=== PATIENT | female | born 1990 | race Caucasian/White ===

== ENCOUNTER → 2016-10-26 | Outpatient (CLI) | payer OTHER ==
--- NOTE | 2016-10-27 07:58 | MM ---
Reason for exam: screening (asymptomatic). Baseline mammogram. History: Patient is nulliparous. Family history of breast cancer in mother at age 40. Taking hormonal contraceptives beginning at age 24. Physical Findings: Nurse did not find any significant physical abnormalities on exam. MG 3D Screening Mammo W/Cad Bilateral CC and MLO view(s) were taken. The breast tissue is heterogeneously dense. This may lower the sensitivity of mammography. There are multiple nodules bilaterally. These results were verbally communicated with the patient and result sheet given to the patient on 10/26/16. ASSESSMENT: Incomplete: need additional imaging evaluation, BI-RAD 0 RECOMMENDATION: Ultrasound of both breasts.
--- NOTE | 2016-10-27 08:06 | USB ---
Reason for exam: additional evaluation requested from abnormal screening. History: Patient is nulliparous. Family history of breast cancer in mother at age 40. Taking hormonal contraceptives beginning at age 24. US Breast Limited BILAT Left breast ultrasound includes all four quadrants, the retroareolar region and axilla. Finding demonstrate a 0.8 x 0.4 x 0.9cm oval, cystic cluster at 12 o'clock, a 0.7 x 0.4 x 0.6cm oval, hypoechoic lesion at 7 o'clock and a 1.2 x 0.7 x 1.1cm oval, cystic lesion at 9 o'clock for which a biopsy is recommended. Right breast ultrasound demonstrates a 0.9 x 0.6 x 1.0cm oval, cystic lesion at 9 o'clock, a 1.0 x 0.4 x 0.5cm oval, cystic cluster at 10 o'clock, a 0.6 x 0.4 x 0.6cm oval, cystic lesion at 10 o'clock and a 1.2 x 0.7 x 1.3cm oval, solid lesion at 10 o'clock for which a biopsy is recommended. These results were verbally communicated with the patient and result sheet given to the patient on 10/26/16. ASSESSMENT: Suspicious, BI-RAD 4 RECOMMENDATION: Ultrasound core biopsy of both breasts. Called Dr. Baumann with mammographic findings and has scheduled an appointment for the patient for 11/19/16 at 10:[address] Robert. Biopsy scheduled for 11/07/16 at 8 o'clock. PRELIMINARY REPORT CALLED AND FAXED TO DR. ROBERT ON 10/27/16 AT 300/TP.
== END | disposition home or self-care (01) ==
LOC: RADMAMWWP 13:07
PROVIDERS: ATTEND Family Medicine
DX: Z12.31 Encounter for screening mammogram for malignant neoplasm of breast (principal); Z12.4 Encounter for screening for malignant neoplasm of cervix; Z80.3 Family history of malignant neoplasm of breast; R92.8 Other abnormal and inconclusive findings on diagnostic imaging of breast
CPT/HCPCS: 77063; 76642; G0202

== ENCOUNTER → 2016-11-05 | Day surgery (SDC) | payer OTHER ==
[~2016-11-05] MED LIST: ALPRAZolam 0.25 MG TAB ONE; BACITRACIN OINT 1 EACH PACKET TOPICAL ONE; LIDOCAINE 1% INJ 10MG/ML (20 ML MDV) ONE; SODIUM BICARB 4% 5 ML VIAL (0.48 MEQ/ML) ONE
--- NOTE | 2016-11-05 09:50 | MM ---
EXAMINATION TYPE: MG diagnostic mammo BI wo CAD DATE OF EXAM: 11/05/2016 9:30 AM COMPARISON: 10/26/2016 CLINICAL HISTORY: Status post ultrasound-guided core biopsy TECHNIQUE: Bilateral breasts are examined in the craniocaudal and mediolateral views. FINDINGS: There is dense parenchymal tissue covering two thirds of the breast. The pattern appears stable. There is interval biopsy with clips within the upper outer posterior right breast and within the mid lateral left breast. IMPRESSION: 1. Successful clip placement for bilateral ultrasound-guided core biopsies. Recommendations: 1. Recommendations are pending pathology results. Pathology Results: Benign A. BREAST, LEFT, CORE BIOPSY: FIBROCYSTIC CHANGES INCLUDING FIBROSIS AND CYSTS. B. BREAST, RIGHT, CORE BIOPSY: FIBROADENOMA AND FIBROCYSTIC CHANGES INCLUDING FIBROSIS, CYSTS AND APOCRINE METAPLASIA. Recommendation Follow up ultrasound of both breasts in 6 months. YEVGENIY
--- NOTE | 2016-11-05 13:44 | USB ---
EXAMINATION TYPE: US biopsy breast VAD RT DATE OF EXAM: 11/05/2016 9:53 AM CLINICAL HISTORY: R92.8 Abm Mammo. TECHNIQUE: Ultrasound guided core biopsy of bilateral breasts. COMPARISON: NONE FINDINGS: The procedure of ultrasound guided core biopsy was explained to the patient. Benefits, alternatives, and risks were discussed. An informed consent was then obtained. Timeout was performed. The patient was placed in supine positioning for imaging and for the procedure. The overlying skin was prepped and draped in usual sterile fashion. Lidocaine buffered with bicarbonate was used as anesthetic into the skin and subcutaneous tissue up to area of concern in the left breast. A parker was made with surgical scalpel. Under ultrasound guidance, a 12-gauge vacuum assisted biopsy gun device was used to obtain 6 core samples. Following this, a biopsy clip was left in lesion. The patient was placed in supine positioning for imaging and for the procedure. The overlying skin was prepped and draped in usual sterile fashion. Lidocaine buffered with bicarbonate was used as anesthetic into the skin and subcutaneous tissue up to area of concern in the right breast. A parker was made with surgical scalpel. The lesion targeted for biopsy is at the 10:00 position posterior near the chest wall. There is identified directly adjacent a small hypoechoic area. Given the proximity to the first lesion this area was biopsied at the same time and the combined samples sent to pathology. The clip be placed between these 2 areas. Under ultrasound guidance, a 12-gauge vacuum assisted biopsy gun device was used to obtain 10 core samples. These included 6 core samples of the larger area with thin the breast near the posterior wall and 4 core samples within the adjacent hypoechoic area directly adjacent to the first biopsied lesion in the right breast. Following this, a biopsy clip was left in right breast directly between the 2 adjacent areas. The patient tolerated the procedure well without any immediate complication. The patient was kept in the radiology department for short stay after the procedure and then discharged home in stable condition. Postprocedure mammogram was obtained. Bilateral biopsy clips are evident. IMPRESSION: 1. Successful, uncomplicated ultrasound guided core biopsy of area of concern in the bilateral breasts. This would include the left breast 9:00 position in the right breast 10:00 posterior position. Recommendations: 1. Recommendations are pending pathology results. Pathology Results: Benign A. BREAST, LEFT, CORE BIOPSY: FIBROCYSTIC CHANGES INCLUDING FIBROSIS AND CYSTS. B. BREAST, RIGHT, CORE BIOPSY: FIBROADENOMA AND FIBROCYSTIC CHANGES INCLUDING FIBROSIS, CYSTS AND APOCRINE METAPLASIA. Recommendation Follow up ultrasound of both breasts in 6 months. YEVGENIY
--- NOTE | 2016-11-05 13:45 | USB ---
EXAMINATION TYPE: US biopsy breast VAD LT DATE OF EXAM: 11/05/2016 9:53 AM CLINICAL HISTORY: R92.8 Abm Mammo. Abnormal ultrasound bilateral breasts. TECHNIQUE: Ultrasound guided core biopsy of bilateral breasts. COMPARISON: 10/26/2016 ultrasound FINDINGS: The procedure of ultrasound guided core biopsy was explained to the patient. Benefits, alternatives, and risks were discussed. An informed consent was then obtained. Timeout was performed. The patient was placed in supine positioning for imaging and for the procedure. The overlying skin was prepped and draped in usual sterile fashion. Lidocaine buffered with bicarbonate was used as anesthetic into the skin and subcutaneous tissue up to area of concern in the left breast. A parker was made with surgical scalpel. Under ultrasound guidance, a 12-gauge vacuum assisted biopsy gun device was used to obtain 6 core samples. Following this, a biopsy clip was left in lesion. The patient was placed in supine positioning for imaging and for the procedure. The overlying skin was prepped and draped in usual sterile fashion. Lidocaine buffered with bicarbonate was used as anesthetic into the skin and subcutaneous tissue up to area of concern in the right breast. A parker was made with surgical scalpel. The lesion targeted for biopsy is at the 10:00 position posterior near the chest wall. There is identified directly adjacent a small hypoechoic area. Given the proximity to the first lesion this area was biopsied at the same time and the combined samples sent to pathology. The clip be placed between these 2 areas. Under ultrasound guidance, a 12-gauge vacuum assisted biopsy gun device was used to obtain 10 core samples. These included 6 core samples of the larger area with thin the breast near the posterior wall and 4 core samples within the adjacent hypoechoic area directly adjacent to the first biopsied lesion in the right breast. Following this, a biopsy clip was left in right breast directly between the 2 adjacent areas. The patient tolerated the procedure well without any immediate complication. The patient was kept in the radiology department for short stay after the procedure and then discharged home in stable condition. Postprocedure mammogram was obtained. Bilateral biopsy clips are evident. IMPRESSION: 1. Successful, uncomplicated ultrasound guided core biopsy of area of concern in the bilateral breasts. This would include the left breast 9:00 position in the right breast 10:00 posterior position. Recommendations: 1. Recommendations are pending pathology results. Pathology Results: Benign A. BREAST, LEFT, CORE BIOPSY: FIBROCYSTIC CHANGES INCLUDING FIBROSIS AND CYSTS. B. BREAST, RIGHT, CORE BIOPSY: FIBROADENOMA AND FIBROCYSTIC CHANGES INCLUDING FIBROSIS, CYSTS AND APOCRINE METAPLASIA. Recommendation Follow up ultrasound of both breasts in 6 months. YEVGENIY
== END ==
LOC: RADUSWWP 07:29
PROVIDERS: ATTEND Surgery
DX: N60.12 Diffuse cystic mastopathy of left breast (principal); N60.11 Diffuse cystic mastopathy of right breast; D24.1 Benign neoplasm of right breast; N60.81 Other benign mammary dysplasias of right breast; R92.8 Other abnormal and inconclusive findings on diagnostic imaging of breast
CPT/HCPCS: 88305; 19083; 19084; G0204; A4648; J2001

== ENCOUNTER → 2017-05-07 | Outpatient (CLI) | payer BC ==
--- NOTE | 2017-05-10 09:25 | USB ---
Reason for exam: follow-up at short interval from prior study. History: Patient is nulliparous. Family history of breast cancer in mother at age 40. Benign US biopsy breast add'l VAD LT of the left breast, November 05, 2016. Benign US biopsy breast VAD RT of the right breast, November 05, 2016. Taking hormonal contraceptives beginning at age 24. Physical Findings: Nurse did not find any significant physical abnormalities on exam. US Breast BILAT Right breast ultrasound includes all four quadrants, the retroareolar region and axilla. Finding demonstrates a 0.6 x 0.7 x 0.3cm hypoechoic lesion at 1 o'clock, a 1.0 x 1.3 x 0.6cm cystic lesion at 8 o'clock, a 0.9 x 1.1 x 0.5cm hypoechoic lesion at 10 o'clock and a 0.6 x 0.6 x 0.4cm cystic lesion at 11 o'clock. Left breast ultrasound includes all four quadrants, the retroareolar region and axilla. Finding demonstrates a 1.0 x 0.9 x 0.4cm mixed lesion at 12 o'clock, a 0.7 x 0.5 x 0.4cm hypoechoic lesion at 7 'clock, a 0.9 x 1.3 x 0.7cm hypoechoic lesion at 9 o'clock and a 0.5 x 0.7 x 0.6cm hypoechoic lesion at 9 o'clock. These results were verbally communicated with the patient and result sheet given to the patient on 05/07/17. ASSESSMENT: Probably benign, BI-RAD 3 RECOMMENDATION: Ultrasound of both breasts in 6 months.
== END | disposition home or self-care (01) ==
LOC: RADUSWWP 14:51
PROVIDERS: ATTEND Surgery
DX: R92.8 Other abnormal and inconclusive findings on diagnostic imaging of breast (principal)